=== PATIENT | male | born 1960 | race Caucasian/White ===

== ENCOUNTER 2020-05-08 23:30 | Inpatient (IN) | payer MEDICAID, SELFPAY ==
[~2020-05-08] VITALS: Ht 185.4 cm; Wt 89.8 kg
[2020-05-08 23:30] VITALS: BP_SYST 147
--- NOTE | 2020-05-08 23:38 | NUR ---
Patient to ER bed 7 to gown for evaluation. Side rails up.
--- NOTE | 2020-05-08 23:42 | NUR ---
Patient presents to the ED ambulatory ANO x4 complaining of right lower quadrant abdominal pain nonradiating. Patient reports pain has progressively worsened in the last 3 days. Patient describes it as constant 10 out of 10 pain. Patient states that he has had decreased appetite and constipation. Patient reports taking Ex-Lax and an enema today for the constipation with minimal relief. Patient also reports that he has a umbilical hernia. Patient denies any nausea, vomiting, chest pain, fevers. Patient denies taking any prescribed medication. Patient reports smoking and denies any alcohol or substance abuse.
--- NOTE | 2020-05-08 23:50 | NUR ---
# 18 gauge angiocath placed to LAC. Use of asceptic technique. Opsite placed over site. Blood return noted. Blood and cultures for lab drawn from site. Flushed with 10 cc of normal saline. No evidence of infiltration noted. Patient tolerated well.
[2020-05-09] MEDS ORDERED: NACL 0.9% 1,000 ML IV ONE
[2020-05-09] MEDS ORDERED: MORPHINE 4 MG/ML INJ. SYRINGE IVP ONE
[2020-05-09] MEDS ORDERED: ONDANSETRON HCL 4 MG/2 ML VIAL IVP ONE
[2020-05-09 00:15] LABS: HEMATOCRIT 45.9 % (36-54); MEAN CORPUSCULAR HEMOGLOBIN 28 pg (27-31); MEAN CORPUSCULAR HGB CONC 33 % (32-36); MEAN CORPUSCULAR VOLUME 86 fL (79.0-98.0); PLATELET COUNT (AUTO) 278 K/uL (130-430); RED BLOOD CELL COUNT(AUTO) 5.32 MIL/uL (4.2-6.2); RED CELL DISTRIBUTION WIDTH 14.6 % (9.0-15.0); WHITE BLOOD COUNT (AUTO) 16.4 K/uL (4.8-10.8)
[2020-05-09 00:20] LABS: CALCIUM 9.2 mg/dL (8.4-11.0); CREATININE 1.15 mg/dL (0.55-1.30); POTASSIUM 4.6 mmol/L (3.5-5.1)
--- NOTE | 2020-05-09 00:23 | NUR ---
Medication reconciliation completed with information provided by patient. Any prior medication reconciliation on file was reviewed and corrected. Patient states not currently on any medication
--- NOTE | 2020-05-09 00:24 | NUR ---
patient states he is full code
[2020-05-09 00:25] LABS: ALBUMIN 3.5 g/dL (3.4-4.8); TOTAL BILIRUBIN 1.1 mg/dL (0.0-1.0)
--- NOTE | 2020-05-09 00:29 | NUR ---
PT ERNESTINE TO CT WITH TECH VIA WC
--- NOTE | 2020-05-09 00:29 | NUR ---
patient off unit to CT Scan accompanied by Terri Facility Planner
--- NOTE | 2020-05-09 00:44 | NUR ---
Returned from radiology, back to [facility]. NO SIGNS OF ACUTE DISTRESS.
--- NOTE | 2020-05-09 00:45 | NUR ---
PT REPORTS PAIN DECREASED, BUT STILL EXPERIENCING SHARP PAIN. 6 OUT 10.
--- NOTE | 2020-05-09 00:48 | NUR ---
DR. LEO AT BEDSIDE REEVALUATING PT.
--- NOTE | 2020-05-09 00:50 | NUR ---
PT STATES HE IS UNABLE TO GIVE URINE SAMPLE AT THIS TIME. AWARE.
[2020-05-09] MEDS ORDERED: fentaNYL CITRATE/PF 100 MCG/2 ML AMP IVP ONE (01:00)
[2020-05-09 01:07] LABS: BAND % (MANUAL) 2 % (0-6); LYMPHOCYTES % (MANUAL) 7 % (20-46)
[2020-05-09 01:08] LABS: ATYPICAL LYMPHOCYTES % 5 % (0-0); BASOPHILS % (MANUAL) 0 % (0-2); EOSINOPHILS % (MANUAL) 0 % (0-7); MONOCYTES % (MANUAL) 9 % (0-11)
[2020-05-09] MEDS ORDERED: PIPERACILLIN/TAZO 3.375 GM in NS 50 ML IV ONE (01:30)
[2020-05-09] MEDS ORDERED: PIPERACILLIN/TAZOBACTAM 3.375 GM/VIAL (ZOSYN) IV ONE (01:38)
--- NOTE | 2020-05-09 01:40 | NUR ---
Pt belongings will be sent home with family. Pt to keep shorts and cell phone at bedside.
[2020-05-09] MEDS ORDERED: MORPHINE 2 MG/ML INJ. SYRINGE IVP PRN ×2 (01:45→08:30)
--- NOTE | 2020-05-09 01:49 | NUR ---
Blood cultures drawn, prior to administration of antibiotic.
--- NOTE | 2020-05-09 01:50 | NUR ---
RECEIVED ADMIT ORDERS FROM DR. ZIMMERMAN
--- NOTE | 2020-05-09 01:53 | NUR ---
Patient will be admitted to care of DR. ZIMMERMAN. Admitted to MED SURG unit. Belongings list completed. Complete and up to date summary report printed. SBAR report to be given at bedside with opportunity for questions.
--- NOTE | 2020-05-09 01:55 | NUR ---
Blood for labwork drawn from [facility] writewith. Patient tolerated WELL.
--- NOTE | 2020-05-09 02:02 | NUR ---
PT UNABLE TO GIVE URINE SAMPLE AT THIS TIME. MADE AWARE FOR SECOND TIME.
[2020-05-09] MEDS: D5NS 1,000 ML IV SCH ×3 (02:25→22:46)
--- NOTE | 2020-05-09 02:29 | NUR ---
PT WILL BE GOING TO 110B
--- NOTE | 2020-05-09 02:43 | NUR ---
Patient will be admitted to care of Dr. Syed. Admitted to Med Surg unit. Will go to room 110B. Complete and up to date summary report printed. SBAR report to be given to BRYCE Lamb with opportunity for questions.
--- NOTE | 2020-05-09 03:00 | NUR ---
ADMISSION PHYSICAL ASSESSMENT NOTES; pt. came from ER with c/o abdominal pain with Diagnosis of Ruptured Appendix. oriented to room, settle in bed. IV site on left antecubital. kept NPO. VS checked. instructed on use of call light and bed control. Dr. HOLLEY for consul,possible surgery this am. moves all extremities. on room air, denies any breathing problem. bed in low position.
[2020-05-09 03:27] VITALS: BP_SYST 156
--- NOTE | 2020-05-09 04:20 | NUR ---
NOTES: nursing supervisor phosphoric acid called and inform me that Dr. Newell will come and felix surgery @ 1862. consent to be sign when Dr. Newell gets here. pre op checklist initiated by charge nurse Jeyson. pt. informed.
--- NOTE | 2020-05-09 04:41 | NUR ---
NOTES: pt. medicated for c/o of severe abdominal pain. CXR and EKG stat ordered for pre-op. MRSA of nares sent as well. still needs urine. CHG will be done by SCHOOL TRAFFIC SUPERVISOR.
--- NOTE | 2020-05-09 05:06 | NUR ---
CONSULT REASON FOR CONSULT: RUPTURED APPY CONSULTING PHYSICIAN: DR. KISHAN HOLLEY IS AWARE.
[2020-05-09 05:24] LABS: BASOPHILS % (AUTO) 0.3 % (0.0-2.0); HEMATOCRIT 41.6 % (36-54); HEMOGLOBIN 13.6 g/dL (14.0-18.0); LYMPHOCYTES # (AUTO) 1.2 K/uL (1.0-5.5); LYMPHOCYTES % (AUTO) 8.7 % (20.5-51.5); MEAN CORPUSCULAR HEMOGLOBIN 28 pg (27-31); MEAN CORPUSCULAR HGB CONC 33 % (32-36); MEAN CORPUSCULAR VOLUME 86 fL (79.0-98.0); MONOCYTES # (AUTO) 1.2 K/uL (0.0-1.0); MONOCYTES % (AUTO) 8.6 % (1.7-9.3); NEUTROPHILS # (AUTO) 11.5 K/uL (1.8-7.7); NEUTROPHILS % (AUTO) 82.4 % (40.0-70.0); PLATELET COUNT (AUTO) 262 K/uL (130-430); RED BLOOD CELL COUNT(AUTO) 4.84 MIL/uL (4.2-6.2); RED CELL DISTRIBUTION WIDTH 14.5 % (9.0-15.0)
[2020-05-09 05:28] LABS: INR 1.1 (0.80-1.20); PROTHROMBIN TIME 10.9 SECS (9.5-12.5)
[2020-05-09 05:31] LABS: CALCIUM 8.1 mg/dL (8.4-11.0); CREATININE 1.03 mg/dL (0.55-1.30); POTASSIUM 4.2 mmol/L (3.5-5.1); TOTAL BILIRUBIN 0.9 mg/dL (0.0-1.0)
--- NOTE | 2020-05-09 05:40 | NUR ---
NOTES: DR. Newell here, talked to pt. for the consent. charge nurse Jeyson took over. checklist completed. bladder scan done @ 260 ml in his bladder, tried to urinate, finally able to void and sent urine sample to lab.
--- NOTE | 2020-05-09 05:45 | NUR ---
NOTES: to OR with pre-op nurse via bed.
[2020-05-09 05:49] LABS: BILIRUBIN,URINE NEGATIVE (NEGATIVE); BLOOD, URINE NEGATIVE (NEGATIVE); CLARITY/URINE CLEAR (CLEAR); COLOR,URINE YELLOW (YELLOW); GLUCOSE,URINE NEGATIVE (NEGATIVE); KETONES,URINE NEGATIVE (NEGATIVE); LEUKOCYTE ESTERASE ,URINE NEGATIVE (NEGATIVE); NITRITE, URINE NEGATIVE (NEGATIVE); PROTEIN URINE TRACE (NEGATIVE)
[2020-05-09] MEDS ORDERED: HYDROmorphone 2 MG/ML VIAL IVP PRN (06:45)
[2020-05-09] MEDS ORDERED: ONDANSETRON HCL 4 MG/2 ML VIAL IVP PRN ×2 (06:45→08:30)
[2020-05-09] MEDS ORDERED: LR 1,000 ML IV SCH (06:45)
[2020-05-09] MEDS ORDERED: KETOROLAC TROMETHAMINE 30 MG VIAL IVP PRN (06:45)
[2020-05-09] MEDS ORDERED: HYDROmorphone 1 MG INJ. 1 MG/ML CARTRIDGE IVP PRN ×2 (06:45)
[2020-05-09] MEDS ORDERED: HYDROmorphone 1 MG INJ. 1 MG/ML CARTRIDGE ONE ×2 (06:59→07:35)
--- NOTE | 2020-05-09 08:00 | NUR ---
Post operative notes From PACU after laparoscopic appendectomy under generalized anesthesia , awake oriented x4 feeling sleepy after pain medication given to PACU , denies any pain, with abdominal surgical incision x4 dry/clean , JACQUIE with minimal output pink color , vitals sign monitor , safety/fall precaution initiated, will monitor.
[2020-05-09 08:15] VITALS: BP_SYST 129
[2020-05-09 08:26] VITALS: BP_SYST 156
[2020-05-09] MEDS ORDERED: ACETAMINOPHEN 325 MG TABLET PO PRN (08:30)
[2020-05-09] MEDS ORDERED: MAGNESIUM SULFATE 50 ML IV PRN (08:30)
[2020-05-09] MEDS ORDERED: ZOLPIDEM TARTRATE 5 MG TABLET PO PRN (08:30)
[2020-05-09] MEDS ORDERED: MUPIROCIN 2% TOPICAL OINTMENT 22 GM NS PRN (08:30)
[2020-05-09] MEDS ORDERED: DOCUSATE SODIUM 100 MG CAPSULE PO PRN (08:30)
[2020-05-09] MEDS ORDERED: POTASSIUM CHLORIDE 20 MEQ TAB.PRT.SR PO PRN (08:30)
[2020-05-09] MEDS ORDERED: LORazepam 2 MG/ML VIAL IVP PRN (08:30)
[2020-05-09] MEDS ORDERED: NALOXONE HCL 0.4 MG/ML AMP (NARCAN) IVP PRN ×2 (08:30)
--- NOTE | 2020-05-09 08:30 | NUR ---
PHYSICAL THERAPY ORDER WAS RECEIVED AND THE CHART REVIEWED. RN REQUESTED TO ATTEMPT THE EVALUATION LATER BECAUSE THE PATIENT RECENTLY RETURNED FROM THE OPERATING ROOM/RECOVERY ROOM.
[2020-05-09] MEDS: PIPERACILLIN/TAZO 3.375 GM in NS 50 ML IV SCH ×2 (08:58→16:58)
[2020-05-09 11:24] VITALS: BP_SYST 140
--- NOTE | 2020-05-09 12:04 | NUR ---
Nutrition Update Jason Scale 17 noted. Pt admitted for ruptured appendicitis. Diet: NPO BMI: 26.1 kg/m2 RD to follow per nutrition care standards.
--- NOTE | 2020-05-09 13:36 | NUR ---
Mobility Up in the bed by Physical therapist walked in the hallway using walker no dizziness , mild abdominal incisional pain but tolerable.
--- NOTE | 2020-05-09 13:55 | NUR ---
Patient didn't urinate after surgery , bladder scan 100 ml , taken to bathroom but no urge , Dr. Syed informed with n. o. carried out
--- NOTE | 2020-05-09 14:50 | NUR ---
Patient unable to urinate after surgery but with urge nothing coming out, straight catheter in/out inserted under aseptic technique no resistant with urine output of 600 ml ., patient had lower abdominal pain 08/23 , vitals sign stable , due pain medication given, will monitor. Addendum: 05/09/20 at 1523 by Mavis Colin RN Patient has bowel sound passed gas
[2020-05-09 15:15] VITALS: BP_SYST 144
[2020-05-09] MEDS: MORPHINE 2 MG/ML INJ. SYRINGE IVP PRN ×2 (15:38→18:48)
--- NOTE | 2020-05-09 18:14 | NUR ---
Tolerates clear liquid diet with out abdominal pain/nausea
--- NOTE | 2020-05-09 18:51 | NUR ---
Pagejason Hutchins production checker for Guerrero Cedeño regarding acute pain in the lower abdomen , Dr. Ying informed pain medication ordered, Addendum: 05/09/20 at 1926 by Mavis Colin RN Dr. Hutchins informed regarding progress of patient , pain , with pain medication ordered, will monitor ;endorsed to maintenance supervisor 2nd shift
--- NOTE | 2020-05-09 19:30 | NUR ---
initial notes: pt is awake, alert, oriented x4,resting at this time. no sign of distress, no sob, no pain. room air, vital sign within normal limits. s/p lap. appendectomy- dressing is dry and intact. with cherrie drain drain to serosanguineous.. no skin issue at the back. ivf infusing to left ac gauge 18- intact and patent. explain poc, safety and and call light. pt verbalized understanding. needs attended. call light in reach, side rails up. low bed position, will follow-up.
[2020-05-09 20:12] VITALS: BP_SYST 133
--- NOTE | 2020-05-09 22:42 | NUR ---
pt ambulate and void to the bathroom, back to bed, not distress, needs attended.
[2020-05-09] MEDS: MORPHINE 4 MG/ML INJ. SYRINGE IVP PRN (22:51)
--- NOTE | 2020-05-09 22:58 | NUR ---
post void residual 65cc.
--- NOTE | 2020-05-09 23:38 | NUR ---
pt is still awake, watching tv. not distress. needs attended. call light in reach.
[2020-05-10] VITALS (7 sets, daily range): BP systolic 127–153
[2020-05-10] MEDS: PIPERACILLIN/TAZO 3.375 GM in NS 50 ML IV SCH ×3 (00:41→17:48)
[2020-05-10] MEDS: HYDROcodone/ACETAMIN 5-325 MG TAB (NORCO/ VICODIN) PO PRN ×3 (01:04→18:59)
--- NOTE | 2020-05-10 01:25 | NUR ---
pt is complain of breakthrough pain of 9/10, and pain cause him anxiety, vital sign stable and recorded. explain pain medication and anxiety medication. pt agree and understand. norco and ativan given. husam light in reach. side rails up. low bed position. safety precaution place. will follow-up.
--- NOTE | 2020-05-10 03:25 | NUR ---
IV RE-INSERTION: pt pull out his IV catheter. Restarted on left forearm. Successful after 1 attempts. Resumed current IVF of d5ns and regulated @ 100cc per hour. Will observe for any signs of infiltration.
[2020-05-10 06:46] LABS: BASOPHILS % (AUTO) 0.3 % (0.0-2.0); EOSINOPHILS # (AUTO) 0.1 K/uL (0.0-0.4); EOSINOPHILS % (AUTO) 0.6 % (0.0-4.0); HEMATOCRIT 38.6 % (36-54); HEMOGLOBIN 12.8 g/dL (14.0-18.0); LYMPHOCYTES # (AUTO) 1.1 K/uL (1.0-5.5); MEAN CORPUSCULAR HEMOGLOBIN 29 pg (27-31); MEAN CORPUSCULAR HGB CONC 33 % (32-36); MEAN CORPUSCULAR VOLUME 86 fL (79.0-98.0); MONOCYTES % (AUTO) 8.6 % (1.7-9.3); NEUTROPHILS # (AUTO) 8.9 K/uL (1.8-7.7); NEUTROPHILS % (AUTO) 80.5 % (40.0-70.0); PLATELET COUNT (AUTO) 251 K/uL (130-430); RED BLOOD CELL COUNT(AUTO) 4.47 MIL/uL (4.2-6.2); RED CELL DISTRIBUTION WIDTH 14.4 % (9.0-15.0); WHITE BLOOD COUNT (AUTO) 11.1 K/uL (4.8-10.8)
[2020-05-10 06:53] LABS: CALCIUM 8.1 mg/dL (8.4-11.0); CREATININE 0.95 mg/dL (0.55-1.30); POTASSIUM 3.6 mmol/L (3.5-5.1)
--- NOTE | 2020-05-10 06:53 | NUR ---
CLOSING: pt is resting, no pain, not distress, ivf infusing well. dressing is clean dry and intact.cherrie is draining well. brp using walker. needs attended the whole shift. call light with the pt. will give sbar report to am rn.
[2020-05-10] MEDS: MORPHINE 4 MG/ML INJ. SYRINGE IVP PRN ×4 (07:15→23:55)
[2020-05-10] MEDS: D5NS 1,000 ML IV SCH ×3 (07:45→23:47)
--- NOTE | 2020-05-10 08:18 | NUR ---
Initial note received patient from socket welder helper nurse. patient is resting with eye close, vital stable . no sign of distress. patient report pain is controlled after morphine administered. patient's dressing is clean and intact. JACQUIE drain lower abd, minimum drainage. safety maintained. call light in reach
--- NOTE | 2020-05-10 10:00 | NUR ---
note Patient is asleep. pain is controlled, safety maintained. call light in reach.
--- NOTE | 2020-05-10 14:00 | NUR ---
note Patient report pain 8/10. morphine is given. educated patient on IV, pain med, encourage patient to use call light before getting up to the bathroom
--- NOTE | 2020-05-10 16:00 | NUR ---
Notes- Ambulate in the hallway, Tolerated well .Patient stated that he is passing gas.
--- NOTE | 2020-05-10 19:03 | NUR ---
closing note patient been resting most of the shift. was able to to ambulate with a walker around the unit, and use to bathroom. his pain is managed with norco and morphine. last dose of norco was given at 1900.c instructed the patient to calll when he needs to get up. safety maintained.
--- NOTE | 2020-05-10 19:12 | NUR ---
Dietitian Recommendations * Recommend continuing clear liquid diet (ONS Ensure Clear TID comes standard w/ current diet order; provides 720 kcal/day, 24 gm protein/day) * Consider advance diet if/when medically appropriate (soft low fiber/bland) diet w/ Ensure Enlive BID for optimal surgical healing) LP, RD Please refer to Nutrition Assessment for details. Addendum: 05/10/20 at [address] Amended: Links added.
--- NOTE | 2020-05-10 19:30 | NUR ---
Initial note Received patient from day shift nurse. Patient is awake and alert in bed, vitals stable . no sign of distress. Pt report pain 10/10. Will medicate. patient's dressing is clean and intact. JACQUIE drain lower abd, minimum drainage. safety maintained. call light in reach
--- NOTE | 2020-05-10 23:30 | NUR ---
RN Rounds Pt medicated for breakthrough pain. VSS. Breathing nonlabored to room air.
[2020-05-11] VITALS: BP_SYST 136
[2020-05-11] MEDS: PIPERACILLIN/TAZO 3.375 GM in NS 50 ML IV SCH ×2 (01:03→08:56)
[2020-05-11] MEDS: HYDROcodone/ACETAMIN 5-325 MG TAB (NORCO/ VICODIN) PO PRN ×2 (01:04→11:54)
[2020-05-11] MEDS: MORPHINE 4 MG/ML INJ. SYRINGE IVP PRN ×2 (05:14→08:56)
--- NOTE | 2020-05-11 05:35 | NUR ---
Pain med given Pt slept for a while however now is at 10/10 pain again. Pt medicated.
--- NOTE | 2020-05-11 06:53 | NUR ---
Closing Note: Patient is awake and alert in bed, breathing nonlabored to room air. IV on LFA #20 infusing ordered fluid and patent. No infiltration noted. JACQUIE drain lower abd, 100 cc drainage through shift. Safety precautions maintained. Call light within reach. Will continue to monitor until care endorsed to dayshift RN.
[2020-05-11 07:28] LABS: BASOPHILS % (AUTO) 0.1 % (0.0-2.0); EOSINOPHILS # (AUTO) 0.1 K/uL (0.0-0.4); EOSINOPHILS % (AUTO) 0.8 % (0.0-4.0); HEMATOCRIT 43.2 % (36-54); HEMOGLOBIN 14.2 g/dL (14.0-18.0); LYMPHOCYTES # (AUTO) 0.7 K/uL (1.0-5.5); LYMPHOCYTES % (AUTO) 6.7 % (20.5-51.5); MEAN CORPUSCULAR HEMOGLOBIN 29 pg (27-31); MEAN CORPUSCULAR HGB CONC 33 % (32-36); MEAN CORPUSCULAR VOLUME 87 fL (79.0-98.0); MONOCYTES # (AUTO) 0.9 K/uL (0.0-1.0); MONOCYTES % (AUTO) 8.4 % (1.7-9.3); NEUTROPHILS # (AUTO) 9.3 K/uL (1.8-7.7); PLATELET COUNT (AUTO) 326 K/uL (130-430); RED BLOOD CELL COUNT(AUTO) 4.97 MIL/uL (4.2-6.2); RED CELL DISTRIBUTION WIDTH 14.8 % (9.0-15.0)
[2020-05-11 08:00] VITALS: BP_SYST 154
--- NOTE | 2020-05-11 08:15 | NUR ---
Opening Notes Patient is awake, alert and oriented x4. No resp distress noted. Breathing is even and unlabored. Pt is c/o 8/10 general body pain, requesting pain meds. Pt is noted ambulating throughout the floor, steady gait. IV site on left RA, 20 gauge intact at this time. Dressing is clean and dry. D5NS @ 100 cc/hr, infusing well at this time. Pt remains on a clear liquid diet. Pt denies any NVD or cough at this time. All needs met. Safety and fall precautions in place. Bed in lowest position, locked. Will continue to monitor.
[2020-05-11 08:21] LABS: CALCIUM 8.6 mg/dL (8.4-11.0); CREATININE 0.8 mg/dL (0.55-1.30); POTASSIUM 3.5 mmol/L (3.5-5.1)
[2020-05-11 10:42] VITALS: BP_SYST 150
[2020-05-11 11:30] VITALS: BP_SYST 150
--- NOTE | 2020-05-11 12:20 | NUR ---
D/C Patient Patient given medication reconciliation form and D/C instructions. Exit Care provided. Patient verbalized understanding. MD discussed with patient the results and treatment provided. Ambulatory with steady gait for discharge to home. Patient in stable condition, ID band removed. IV catheter removed, intact and dressing applied, no active bleeding. Rx of given. Patient educated on pain management. All belongings sent with patient.
--- NOTE | 2020-05-12 09:51 | NUR ---
PHYSICAL THERAPY CO-SIGN The Physical Therapy Progress Notes documented by Financial Risk Manager have been reviewed. Reviewed/Co-Signed by: Jose Dobson Documentation Done by: ROSELINE DAMIAN PTA Addendum: 05/12/20 at 0952 by Jose Dobson PT Amended: Links added.
== END 2020-05-11 12:25 | disposition home or self-care (01) | DRG 710 ==
LOC: SED 23:30 → SMU 05-09 01:45
PROVIDERS: ADMIT General Practice; ATTEND General Practice
PROC: 0DTJ4ZZ Resection of Appendix, Percutaneous Endoscopic Approach (ICD-10-PCS; principal; 2020-05-09 05:37)
DX: A41.9 Sepsis, unspecified organism (principal); K35.32 Acute appendicitis with perforation, localized peritonitis, and gangrene, without abscess; K40.20 Bilateral inguinal hernia, without obstruction or gangrene, not specified as recurrent; E83.41 Hypermagnesemia; R74.01 Elevation of levels of liver transaminase levels; E44.0 Moderate protein-calorie malnutrition; Z20.822 Contact with and (suspected) exposure to COVID-19; F17.210 Nicotine dependence, cigarettes, uncomplicated; Z68.26 Body mass index [BMI] 26.0-26.9, adult
CPT/HCPCS: 36415; 71045; 76376; 80048; 80053; 81003; 83036; 83605; 83690-TC; 83735-TC; 85007; 85025; 85027; 85610-TC; 85730-TC; 87040-TC; 87081; 88304; 93005; 94010; 96361; 96365; 96374; 96375; 97112-GP; 97116-GP; C1727; J1170; J2060; J2270; J2405; J2543; J3010; J7042

== ENCOUNTER 2020-05-12 06:28 | Inpatient (IN) | payer MEDICAID, SELFPAY ==
[~2020-05-12] VITALS: Ht 185.4 cm; Wt 88.5 kg
[~2020-05-12 06:28] MED LIST: BUPIVACAINE /EPINEPHRINE/PF 0.5% 30 ML VIAL INJ ONE; CEFAZOLIN 2 GM IVPB PREMIX 50 ML IV ONE; GLYCOPYRROLATE 0.2 MG/ML VIAL IJ ONE; KETAMINE 30 MG/3 ML SYRINGE IV ONE; KETAMINE HCL 500 MG/10 ML VIAL IVP ONE; KETOROLAC TROMETHAMINE 30 MG VIAL IVP ONE; LR 1,000 ML IV.SOLN IV ONE; METOCLOPRAMIDE HCL 10 MG/2 ML VIAL IVP ONE; NEOSTIGMINE METHYLSULFATE 1 MG/ML, 10 ML VIAL IVP ONE; NS 1000 ML IV.SOLN IV ONE; NS IRRIG SOLN 1000 ML IR ONE; ONDANSETRON HCL 4 MG/2 ML VIAL IVP ONE; ROCURONIUM BROMIDE 10 MG/ML (ZEMURON) IV ONE; SEVOFLURANE 15 MIN GAS INH ONE; fentaNYL CITRATE/PF 100 MCG/2 ML AMP IVP ONE
[2020-05-12 06:34] VITALS: BP_SYST 150
[2020-05-12] MEDS ORDERED: PIPERACILLIN/TAZOBACTAM 3.375 GM/VIAL (ZOSYN) IV ONE (06:59)
[2020-05-12] MEDS ORDERED: NACL 0.9% 2,000 ML IV ONE (07:00)
[2020-05-12] MEDS ORDERED: PIPERACILLIN/TAZO 3.375 GM in NS 50 ML IV ONE (07:00)
[2020-05-12] MEDS ORDERED: NACL 0.9% 1,000 ML IV ONE (07:00)
[2020-05-12] MEDS ORDERED: ONDANSETRON HCL 4 MG/2 ML VIAL IVP ONE (07:00)
[2020-05-12] MEDS ORDERED: MORPHINE 4 MG INJ. 4 MG/ML VIAL IVP ONE ×2 (07:00→09:45)
[2020-05-12 07:13] LABS: BASOPHILS % (AUTO) 0.5 % (0.0-2.0); EOSINOPHILS # (AUTO) 0.2 K/uL (0.0-0.4); EOSINOPHILS % (AUTO) 2.1 % (0.0-4.0); HEMATOCRIT 43.7 % (36-54); HEMOGLOBIN 14.8 g/dL (14.0-18.0); LYMPHOCYTES % (AUTO) 13.5 % (20.5-51.5); MEAN CORPUSCULAR HEMOGLOBIN 29 pg (27-31); MEAN CORPUSCULAR HGB CONC 34 % (32-36); MEAN CORPUSCULAR VOLUME 85 fL (79.0-98.0); MONOCYTES # (AUTO) 1.3 K/uL (0.0-1.0); MONOCYTES % (AUTO) 16.5 % (1.7-9.3); NEUTROPHILS # (AUTO) 5.2 K/uL (1.8-7.7); NEUTROPHILS % (AUTO) 67.4 % (40.0-70.0); PLATELET COUNT (AUTO) 427 K/uL (130-430); RED BLOOD CELL COUNT(AUTO) 5.16 MIL/uL (4.2-6.2); RED CELL DISTRIBUTION WIDTH 14.4 % (9.0-15.0); WHITE BLOOD COUNT (AUTO) 7.7 K/uL (4.8-10.8)
[2020-05-12 07:29] LABS: CALCIUM 8.7 mg/dL (8.4-11.0); CREATININE 0.88 mg/dL (0.55-1.30); POTASSIUM 3.8 mmol/L (3.5-5.1)
[2020-05-12 07:35] LABS: ALBUMIN 2.8 g/dL (3.4-4.8); TOTAL BILIRUBIN 1.2 mg/dL (0.0-1.0)
[2020-05-12] MEDS ORDERED: LR 1,000 ML IV ONE (10:00)
[2020-05-12] MEDS ORDERED: ONDANSETRON HCL 4 MG/2 ML VIAL IVP PRN (10:45)
[2020-05-12 12:00] VITALS: BP_SYST 158
[2020-05-12] MEDS ORDERED: ENOXAPARIN SODIUM 30 MG/0.3 ML SYRINGE SUBCUT ONE (12:00)
[2020-05-12] MEDS ORDERED: NICOTINE 14 MG/24 HR PATCH.TD24 TD ONE (12:00)
[2020-05-12] MEDS: D5NS 1,000 ML IV SCH (13:00)
[2020-05-12] MEDS: PIPERACILLIN/TAZO 3.375/DEX-IS 50 ML IV SCH ×2 (13:41→21:10)
[2020-05-12 16:56] VITALS: BP_SYST 135
[2020-05-12 20:01] VITALS: BP_SYST 147
[2020-05-12] MEDS: HYDROmorphone 1 INJ. 1 MG/ML CARTRIDGE IVP PRN (21:15)
[2020-05-13 00:01] VITALS: BP_SYST 142
[2020-05-13] MEDS: PIPERACILLIN/TAZO 3.375/DEX-IS 50 ML IV SCH ×4 (01:25→20:18)
[2020-05-13] MEDS: D5NS 1,000 ML IV SCH ×3 (01:25→20:19)
[2020-05-13] MEDS: HYDROmorphone 1 INJ. 1 MG/ML CARTRIDGE IVP PRN ×5 (01:28→22:13)
[2020-05-13 06:31] LABS: BASOPHILS % (AUTO) 0.4 % (0.0-2.0); EOSINOPHILS # (AUTO) 0.2 K/uL (0.0-0.4); EOSINOPHILS % (AUTO) 4.7 % (0.0-4.0); HEMATOCRIT 38.2 % (36-54); HEMOGLOBIN 12.7 g/dL (14.0-18.0); LYMPHOCYTES # (AUTO) 0.8 K/uL (1.0-5.5); LYMPHOCYTES % (AUTO) 17.5 % (20.5-51.5); MEAN CORPUSCULAR HEMOGLOBIN 29 pg (27-31); MEAN CORPUSCULAR HGB CONC 33 % (32-36); MEAN CORPUSCULAR VOLUME 86 fL (79.0-98.0); MONOCYTES # (AUTO) 1.1 K/uL (0.0-1.0); MONOCYTES % (AUTO) 21.7 % (1.7-9.3); NEUTROPHILS # (AUTO) 2.7 K/uL (1.8-7.7); NEUTROPHILS % (AUTO) 55.7 % (40.0-70.0); PLATELET COUNT (AUTO) 426 K/uL (130-430); RED BLOOD CELL COUNT(AUTO) 4.46 MIL/uL (4.2-6.2); RED CELL DISTRIBUTION WIDTH 14.7 % (9.0-15.0); WHITE BLOOD COUNT (AUTO) 4.8 K/uL (4.8-10.8)
[2020-05-13 06:47] LABS: CALCIUM 8.2 mg/dL (8.4-11.0); CREATININE 1.05 mg/dL (0.55-1.30); PHOSPHORUS 3.5 mg/dL (2.7-4.5); POTASSIUM 3.4 mmol/L (3.5-5.1)
[2020-05-13 08:00] VITALS: BP_SYST 140
[2020-05-13] MEDS ORDERED: GASTROGRAFIN 120 ML ONE (08:18)
[2020-05-13] MEDS: NICOTINE 14 MG/24 HR PATCH.TD24 TD SCH (08:32)
[2020-05-13] MEDS: ENOXAPARIN SODIUM 30 MG/0.3 ML SYRINGE SUBCUT SCH (08:35)
[2020-05-13 12:00] VITALS: BP_SYST 163
[2020-05-13 17:00] VITALS: BP_SYST 141
[2020-05-13 20:00] VITALS: BP_SYST 157
[2020-05-14] MEDS: PIPERACILLIN/TAZO 3.375/DEX-IS 50 ML IV SCH ×4 (01:27→19:21)
[2020-05-14] MEDS: HYDROmorphone 1 INJ. 1 MG/ML CARTRIDGE IVP PRN ×5 (01:40→23:31)
[2020-05-14] MEDS ORDERED: KCL 20 mEq in D5/0.45NS 1000mL 1,000 ML IV ONE (02:15)
[2020-05-14] MEDS: KCL 20 mEq in D5NS 1000 mL 1,000 ML IV SCH ×2 (02:27→12:37)
[2020-05-14 07:44] LABS: ALBUMIN 2.6 g/dL (3.4-4.8); CALCIUM 8.1 mg/dL (8.4-11.0); CREATININE 1.11 mg/dL (0.55-1.30); PHOSPHORUS 4.2 mg/dL (2.7-4.5); POTASSIUM 3.3 mmol/L (3.5-5.1); TOTAL BILIRUBIN 0.6 mg/dL (0.0-1.0)
[2020-05-14 08:00] VITALS: BP_SYST 144
[2020-05-14] MEDS: NICOTINE 14 MG/24 HR PATCH.TD24 TD SCH (08:30)
[2020-05-14] MEDS: ENOXAPARIN SODIUM 30 MG/0.3 ML SYRINGE SUBCUT SCH (08:32)
[2020-05-14 12:50] VITALS: BP_SYST 130
[2020-05-14] MEDS ORDERED: *PPN PER PHARMACY XX PRN (14:30)
[2020-05-14] MEDS: D5NS 1,000 ML IV SCH (15:33)
[2020-05-14 16:00] VITALS: BP_SYST 150
[2020-05-14 20:00] VITALS: BP_SYST 156
[2020-05-15] MEDS: PIPERACILLIN/TAZO 3.375/DEX-IS 50 ML IV SCH ×5 (00:27→23:57)
[2020-05-15 00:46] VITALS: BP_SYST 167
[2020-05-15] MEDS: D5NS 1,000 ML IV SCH ×2 (03:35→18:33)
[2020-05-15 06:42] LABS: BASOPHILS % (AUTO) 0.3 % (0.0-2.0); EOSINOPHILS # (AUTO) 0.1 K/uL (0.0-0.4); EOSINOPHILS % (AUTO) 1.4 % (0.0-4.0); HEMATOCRIT 38.5 % (36-54); HEMOGLOBIN 12.7 g/dL (14.0-18.0); LYMPHOCYTES # (AUTO) 1.3 K/uL (1.0-5.5); LYMPHOCYTES % (AUTO) 16.9 % (20.5-51.5); MEAN CORPUSCULAR HEMOGLOBIN 29 pg (27-31); MEAN CORPUSCULAR HGB CONC 33 % (32-36); MEAN CORPUSCULAR VOLUME 86 fL (79.0-98.0); MONOCYTES % (AUTO) 12.3 % (1.7-9.3); NEUTROPHILS # (AUTO) 5.4 K/uL (1.8-7.7); NEUTROPHILS % (AUTO) 69.1 % (40.0-70.0); PLATELET COUNT (AUTO) 441 K/uL (130-430); RED BLOOD CELL COUNT(AUTO) 4.45 MIL/uL (4.2-6.2); RED CELL DISTRIBUTION WIDTH 14.6 % (9.0-15.0); WHITE BLOOD COUNT (AUTO) 7.8 K/uL (4.8-10.8)
[2020-05-15 07:15] LABS: ALBUMIN 2.6 g/dL (3.4-4.8); CALCIUM 7.8 mg/dL (8.4-11.0); CREATININE 0.99 mg/dL (0.55-1.30); PHOSPHORUS 2.6 mg/dL (2.7-4.5); POTASSIUM 3.3 mmol/L (3.5-5.1); TOTAL BILIRUBIN 0.5 mg/dL (0.0-1.0)
[2020-05-15 09:10] VITALS: BP_SYST 154
[2020-05-15] MEDS: NICOTINE 14 MG/24 HR PATCH.TD24 TD SCH (09:10)
[2020-05-15] MEDS: ENOXAPARIN SODIUM 30 MG/0.3 ML SYRINGE SUBCUT SCH (09:11)
[2020-05-15] MEDS: HYDROmorphone 1 INJ. 1 MG/ML CARTRIDGE IVP PRN ×2 (09:13→13:13)
[2020-05-15] MEDS ORDERED: POTASSIUM CHLORIDE 20 MEQ in NS 250 ML IV ONE (11:15)
[2020-05-15 12:17] VITALS: BP_SYST 164
[2020-05-15] MEDS ORDERED: ONDANSETRON HCL 4 MG/2 ML VIAL IVP PRN (12:30)
[2020-05-15] MEDS ORDERED: fentaNYL CITRATE/PF 100 MCG/2 ML AMP IVP PRN ×2 (12:30)
[2020-05-15 13:39] VITALS: BP_SYST 154
[2020-05-15 13:52] LABS: CALCIUM 7.4 mg/dL (8.4-11.0); CREATININE 1.05 mg/dL (0.55-1.30); POTASSIUM 3.6 mmol/L (3.5-5.1)
[2020-05-15] MEDS ORDERED: GLYCOPYRROLATE 0.2 MG/ML VIAL IJ ONE (14:30)
[2020-05-15] MEDS ORDERED: NS IRRIG SOLN 1000 ML IR ONE (14:30)
[2020-05-15] MEDS ORDERED: SUCCINYLCHOLINE CHLORIDE 20 MG/ML(QUELICIN) IVP ONE (14:30)
[2020-05-15] MEDS ORDERED: ROCURONIUM BROMIDE 10 MG/ML (ZEMURON) IV ONE (14:30)
[2020-05-15] MEDS ORDERED: DEXAMETHASONE SOD PHOSPHATE 4 MG/ML VIAL IVP ONE (14:30)
[2020-05-15] MEDS ORDERED: METOCLOPRAMIDE HCL 10 MG/2 ML VIAL IVP ONE (14:30)
[2020-05-15] MEDS ORDERED: fentaNYL CITRATE 250 MCG/5 ML AMP IV ONE (14:30)
[2020-05-15] MEDS ORDERED: ONDANSETRON HCL 4 MG/2 ML VIAL IVP ONE (14:30)
[2020-05-15] MEDS ORDERED: NEOSTIGMINE METHYLSULFATE 1 MG/ML, 10 ML VIAL IVP ONE (14:30)
[2020-05-15] MEDS ORDERED: PROPOFOL 200MG/ 20ML VIAL (DIPRIVAN) IV ONE (14:30)
[2020-05-15] MEDS ORDERED: LR 1,000 ML IV.SOLN IV ONE (14:30)
[2020-05-15] MEDS ORDERED: BUPIVACAINE /EPINEPHRINE/PF 0.25% 30 ML VIAL INJ ONE (14:30)
[2020-05-15] MEDS ORDERED: MIDAZOLAM HCL 5 MG/5 ML VIAL IVP ONE (14:30)
[2020-05-15] MEDS ORDERED: HYDROmorphone 2 MG/ML VIAL IVP ONE (14:30)
[2020-05-15] MEDS ORDERED: SEVOFLURANE 15 MIN GAS INH ONE (14:30)
[2020-05-15 14:58] LABS: INR 1.6 (0.80-1.20); PROTHROMBIN TIME 16.2 SECS (9.5-12.5)
[2020-05-15] MEDS ORDERED: MEPERIDINE HCL/PF 25 MG/ML DISP.SYRIN IVP PRN (16:00)
[2020-05-15] MEDS ORDERED: LABETALOL 100 MG/ 20ML VIAL IVP PRN (16:00)
[2020-05-15] MEDS ORDERED: HYDROmorphone 2 MG/ML VIAL IVP PRN ×2 (16:00)
[2020-05-15] MEDS ORDERED: HYDROmorphone 1 INJ. 1 MG/ML CARTRIDGE IVP PRN (16:00)
[2020-05-15] MEDS ORDERED: LR 1,000 ML IV SCH (16:00)
[2020-05-15] MEDS ORDERED: HYDROmorphone 1 INJ. 1 MG/ML CARTRIDGE ONE (16:14)
[2020-05-15] MEDS ORDERED: LABETALOL 100 MG/ 20ML VIAL ONE (16:15)
[2020-05-15 17:20] VITALS: BP_SYST 144
[2020-05-15 18:30] LABS: BLOOD, URINE 3+ (NEGATIVE); CLARITY/URINE CLEAR (CLEAR); COLOR,URINE YELLOW (YELLOW); GLUCOSE,URINE NEGATIVE (NEGATIVE); KETONES,URINE NEGATIVE (NEGATIVE); LEUKOCYTE ESTERASE ,URINE NEGATIVE (NEGATIVE); NITRITE, URINE NEGATIVE (NEGATIVE); PROTEIN URINE 1+ (NEGATIVE)
[2020-05-15 18:54] LABS: BILIRUBIN,URINE 2+ (NEGATIVE)
[2020-05-15 20:00] VITALS: BP_SYST 158
[2020-05-15 20:11] LABS: RBC,URINE 20-50 /HPF (0-3); WBC,URINE NONE SEEN /HPF (0-3)
[2020-05-15 20:12] LABS: BACTERIA,URINE None Seen /HPF (None Seen); TRICHOMONAS,URINE None Seen /HPF (None Seen); YEAST,URINE None Seen /HPF (None Seen)
[2020-05-15] MEDS ORDERED: POTASSIUM ACETATE IV SCH ×8 (21:00)
[2020-05-15] MEDS ORDERED: POTASSIUM CHLORIDE IV SCH ×8 (21:00)
[2020-05-15] MEDS ORDERED: [UNRECOGNIZED DRUG - OTHER] IV SCH ×8 (21:00)
[2020-05-15] MEDS ORDERED: TPN PERIPHERAL IV SCH ×8 (21:00)
[2020-05-16] MEDS: HYDROmorphone 1 INJ. 1 MG/ML CARTRIDGE IVP PRN ×4 (00:04→21:18)
[2020-05-16 01:14] VITALS: BP_SYST 151
[2020-05-16] MEDS: HYDROcodone/ACETAMIN 5-325 MG TAB (NORCO/ VICODIN) PO PRN (04:16)
[2020-05-16] MEDS: PIPERACILLIN/TAZO 3.375/DEX-IS 50 ML IV SCH ×3 (06:01→21:04)
[2020-05-16 06:43] LABS: BASOPHILS % (AUTO) 0.2 % (0.0-2.0); EOSINOPHILS % (AUTO) 0.1 % (0.0-4.0); HEMATOCRIT 37.4 % (36-54); HEMOGLOBIN 12.1 g/dL (14.0-18.0); LYMPHOCYTES # (AUTO) 1.7 K/uL (1.0-5.5); LYMPHOCYTES % (AUTO) 15.6 % (20.5-51.5); MEAN CORPUSCULAR HEMOGLOBIN 29 pg (27-31); MEAN CORPUSCULAR HGB CONC 33 % (32-36); MEAN CORPUSCULAR VOLUME 88 fL (79.0-98.0); MONOCYTES # (AUTO) 0.7 K/uL (0.0-1.0); NEUTROPHILS # (AUTO) 8.2 K/uL (1.8-7.7); NEUTROPHILS % (AUTO) 77.1 % (40.0-70.0); PLATELET COUNT (AUTO) 397 K/uL (130-430); RED BLOOD CELL COUNT(AUTO) 4.26 MIL/uL (4.2-6.2); WHITE BLOOD COUNT (AUTO) 10.7 K/uL (4.8-10.8)
[2020-05-16 07:29] LABS: CALCIUM 7.7 mg/dL (8.4-11.0); CREATININE 1.04 mg/dL (0.55-1.30); PHOSPHORUS 3.8 mg/dL (2.7-4.5); POTASSIUM 4.2 mmol/L (3.5-5.1)
[2020-05-16 07:45] VITALS: BP_SYST 151
[2020-05-16] MEDS: NICOTINE 14 MG/24 HR PATCH.TD24 TD SCH (08:55)
[2020-05-16] MEDS: ENOXAPARIN SODIUM 30 MG/0.3 ML SYRINGE SUBCUT SCH (09:00)
[2020-05-16 12:15] VITALS: BP_SYST 142
[2020-05-16] MEDS: D5NS 1,000 ML IV SCH ×2 (12:17→21:25)
[2020-05-16] MEDS ORDERED: MORPHINE 2 MG/ML INJ. SYRINGE IVP PRN (14:45)
[2020-05-16] MEDS ORDERED: SIMETHICONE 80 MG TAB.CHEW PO PRN (14:45)
[2020-05-16] MEDS ORDERED: KETOROLAC TROMETHAMINE 15 MG VIAL IM ONE (15:30)
[2020-05-16 16:10] VITALS: BP_SYST 160
[2020-05-16 20:00] VITALS: BP_SYST 159
[2020-05-16] MEDS ORDERED: TPN PERIPHERAL IV SCH ×9 (21:00)
[2020-05-16] MEDS ORDERED: [UNRECOGNIZED DRUG - OTHER] IV SCH ×9 (21:00)
[2020-05-16] MEDS ORDERED: POTASSIUM CHLORIDE IV SCH ×9 (21:00)
[2020-05-16] MEDS ORDERED: POTASSIUM ACETATE IV SCH ×9 (21:00)
[2020-05-16] MEDS: KETOROLAC TROMETHAMINE 15 MG VIAL IM SCH (23:19)
[2020-05-17] VITALS: BP_SYST 149
[2020-05-17] MEDS: PIPERACILLIN/TAZO 3.375/DEX-IS 50 ML IV SCH ×4 (01:12→18:50)
[2020-05-17] MEDS: KETOROLAC TROMETHAMINE 15 MG VIAL IM SCH ×3 (06:03→17:59)
[2020-05-17 06:28] LABS: BASOPHILS % (AUTO) 0.3 % (0.0-2.0); EOSINOPHILS # (AUTO) 0.1 K/uL (0.0-0.4); EOSINOPHILS % (AUTO) 1.7 % (0.0-4.0); HEMATOCRIT 34.2 % (36-54); HEMOGLOBIN 10.9 g/dL (14.0-18.0); LYMPHOCYTES # (AUTO) 1.1 K/uL (1.0-5.5); LYMPHOCYTES % (AUTO) 16.5 % (20.5-51.5); MEAN CORPUSCULAR HEMOGLOBIN 28 pg (27-31); MEAN CORPUSCULAR HGB CONC 32 % (32-36); MEAN CORPUSCULAR VOLUME 89 fL (79.0-98.0); MONOCYTES # (AUTO) 0.6 K/uL (0.0-1.0); MONOCYTES % (AUTO) 8.4 % (1.7-9.3); NEUTROPHILS % (AUTO) 73.1 % (40.0-70.0); PLATELET COUNT (AUTO) 336 K/uL (130-430); RED BLOOD CELL COUNT(AUTO) 3.85 MIL/uL (4.2-6.2); RED CELL DISTRIBUTION WIDTH 15.3 % (9.0-15.0); WHITE BLOOD COUNT (AUTO) 6.9 K/uL (4.8-10.8)
[2020-05-17 06:45] LABS: ALBUMIN 1.9 g/dL (3.4-4.8); CREATININE 1.1 mg/dL (0.55-1.30); PHOSPHORUS 2.3 mg/dL (2.7-4.5); TOTAL BILIRUBIN 0.6 mg/dL (0.0-1.0)
[2020-05-17 07:48] LABS: POTASSIUM 2.8 mmol/L (3.5-5.1)
[2020-05-17 08:00] VITALS: BP_SYST 130
[2020-05-17] MEDS ORDERED: D5W 1,000 ML IV PRN (08:45)
[2020-05-17] MEDS ORDERED: DEXTROSE 50%-WATER 50 ML DISP.SYRIN IVP PRN (08:45)
[2020-05-17] MEDS ORDERED: GLUCOSE (DEXTROSE) ORAL GEL -Adults PO PRN (08:45)
[2020-05-17] MEDS ORDERED: INSULIN REGULAR, HUMAN 100 UNITS/ML, 10 ML VIAL (humuLIN R) SUBCUT PRN (08:45)
[2020-05-17] MEDS: NICOTINE 14 MG/24 HR PATCH.TD24 TD SCH (09:35)
[2020-05-17] MEDS: ENOXAPARIN SODIUM 30 MG/0.3 ML SYRINGE SUBCUT SCH (09:35)
[2020-05-17] MEDS: NACL 0.9% 1,000 ML IV SCH ×2 (10:31→21:46)
[2020-05-17 12:00] VITALS: BP_SYST 163
[2020-05-17 15:09] VITALS: BP_SYST 132
[2020-05-17] MEDS: HYDROcodone/ACETAMIN 5-325 MG TAB (NORCO/ VICODIN) PO PRN (18:45)
[2020-05-17 20:00] VITALS: BP_SYST 162
[2020-05-17] MEDS ORDERED: [UNRECOGNIZED DRUG - OTHER] IV SCH ×9 (21:00)
[2020-05-17] MEDS ORDERED: K PHOS IV SCH ×9 (21:00)
[2020-05-17] MEDS ORDERED: POTASSIUM ACETATE IV SCH ×9 (21:00)
[2020-05-17] MEDS ORDERED: TPN PERIPHERAL IV SCH ×9 (21:00)
[2020-05-18] MEDS: KETOROLAC TROMETHAMINE 15 MG VIAL IM SCH ×4 (00:38→18:27)
[2020-05-18] MEDS: PIPERACILLIN/TAZO 3.375/DEX-IS 50 ML IV SCH ×4 (00:39→18:32)
[2020-05-18] MEDS: HYDROmorphone 1 INJ. 1 MG/ML CARTRIDGE IVP PRN ×5 (03:27→22:15)
[2020-05-18 07:58] LABS: ALBUMIN 2.3 g/dL (3.4-4.8); CALCIUM 7.8 mg/dL (8.4-11.0); CREATININE 0.85 mg/dL (0.55-1.30); POTASSIUM 3.6 mmol/L (3.5-5.1); TOTAL BILIRUBIN 0.9 mg/dL (0.0-1.0)
[2020-05-18 08:00] VITALS: BP_SYST 156
[2020-05-18] MEDS: NICOTINE 14 MG/24 HR PATCH.TD24 TD SCH (08:28)
[2020-05-18] MEDS: ENOXAPARIN SODIUM 30 MG/0.3 ML SYRINGE SUBCUT SCH (08:34)
[2020-05-18] MEDS: NACL 0.9% 1,000 ML IV SCH ×2 (11:56→18:34)
[2020-05-18 12:00] VITALS: BP_SYST 155
[2020-05-18 16:00] VITALS: BP_SYST 128
[2020-05-18 20:00] VITALS: BP_SYST 154
[2020-05-18] MEDS ORDERED: ZOLPIDEM TARTRATE 5 MG TABLET PO PRN (21:00)
[2020-05-18] MEDS ORDERED: POTASSIUM ACETATE IV SCH ×10 (21:00)
[2020-05-18] MEDS ORDERED: SODIUM ACETATE IV SCH ×10 (21:00)
[2020-05-18] MEDS ORDERED: [UNRECOGNIZED DRUG - OTHER] IV SCH ×10 (21:00)
[2020-05-18] MEDS ORDERED: TPN PERIPHERAL IV SCH ×10 (21:00)
[2020-05-18] MEDS: KETOROLAC TROMETHAMINE 15 MG VIAL IVP SCH (23:20)
[2020-05-19 00:23] VITALS: BP_SYST 155
[2020-05-19] MEDS: HYDROmorphone 1 INJ. 1 MG/ML CARTRIDGE IVP PRN ×5 (03:22→21:02)
[2020-05-19] MEDS: KETOROLAC TROMETHAMINE 15 MG VIAL IVP SCH ×4 (05:35→23:25)
[2020-05-19 06:46] LABS: BASOPHILS % (AUTO) 0.3 % (0.0-2.0); EOSINOPHILS % (AUTO) 1.1 % (0.0-4.0); HEMATOCRIT 36.2 % (36-54); LYMPHOCYTES # (AUTO) 0.8 K/uL (1.0-5.5); LYMPHOCYTES % (AUTO) 24.1 % (20.5-51.5); MEAN CORPUSCULAR HEMOGLOBIN 28 pg (27-31); MEAN CORPUSCULAR HGB CONC 33 % (32-36); MEAN CORPUSCULAR VOLUME 85 fL (79.0-98.0); MONOCYTES # (AUTO) 0.6 K/uL (0.0-1.0); MONOCYTES % (AUTO) 16.3 % (1.7-9.3); NEUTROPHILS % (AUTO) 58.2 % (40.0-70.0); PLATELET COUNT (AUTO) 294 K/uL (130-430); RED BLOOD CELL COUNT(AUTO) 4.24 MIL/uL (4.2-6.2); RED CELL DISTRIBUTION WIDTH 14.6 % (9.0-15.0); WHITE BLOOD COUNT (AUTO) 3.4 K/uL (4.8-10.8)
[2020-05-19 07:30] LABS: ALBUMIN 2.4 g/dL (3.4-4.8); CREATININE 0.73 mg/dL (0.55-1.30); PHOSPHORUS 2.8 mg/dL (2.7-4.5); POTASSIUM 3.6 mmol/L (3.5-5.1); TOTAL BILIRUBIN 0.8 mg/dL (0.0-1.0)
[2020-05-19 08:16] VITALS: BP_SYST 155
[2020-05-19] MEDS: NICOTINE 14 MG/24 HR PATCH.TD24 TD SCH (08:18)
[2020-05-19] MEDS: ENOXAPARIN SODIUM 30 MG/0.3 ML SYRINGE SUBCUT SCH (08:23)
[2020-05-19 11:25] VITALS: BP_SYST 146
[2020-05-19 12:16] VITALS: BP_SYST 143
[2020-05-19] MEDS ORDERED: PANTOPRAZOLE SODIUM 40 MG/VIAL (PROTONIX) IVP ONE (13:45)
[2020-05-19 16:04] LABS: INR 2.2 (0.80-1.20); PROTHROMBIN TIME 22.5 SECS (9.5-12.5)
[2020-05-19 16:15] VITALS: BP_SYST 162
[2020-05-19] MEDS: NACL 0.9% 1,000 ML IV SCH (17:55)
[2020-05-19 20:45] VITALS: BP_SYST 156
[2020-05-19] MEDS ORDERED: TPN PERIPHERAL IV SCH ×10 (21:00)
[2020-05-19] MEDS ORDERED: POTASSIUM ACETATE IV SCH ×10 (21:00)
[2020-05-19] MEDS ORDERED: SODIUM CHLORIDE IV SCH ×10 (21:00)
[2020-05-19] MEDS ORDERED: [UNRECOGNIZED DRUG - OTHER] IV SCH ×10 (21:00)
[2020-05-20] VITALS: BP_SYST 156
[2020-05-20 01:23] VITALS: BP_SYST 154
[2020-05-20] MEDS: HYDROmorphone 1 INJ. 1 MG/ML CARTRIDGE IVP PRN ×2 (03:35→08:00)
[2020-05-20] MEDS: KETOROLAC TROMETHAMINE 15 MG VIAL IVP SCH ×4 (05:54→23:00)
[2020-05-20 06:23] LABS: BASOPHILS % (AUTO) 0.3 % (0.0-2.0); EOSINOPHILS % (AUTO) 1.1 % (0.0-4.0); HEMOGLOBIN 11.5 g/dL (14.0-18.0); LYMPHOCYTES # (AUTO) 1.1 K/uL (1.0-5.5); LYMPHOCYTES % (AUTO) 27.1 % (20.5-51.5); MEAN CORPUSCULAR HEMOGLOBIN 28 pg (27-31); MEAN CORPUSCULAR HGB CONC 33 % (32-36); MEAN CORPUSCULAR VOLUME 86 fL (79.0-98.0); MONOCYTES # (AUTO) 0.6 K/uL (0.0-1.0); MONOCYTES % (AUTO) 14.4 % (1.7-9.3); NEUTROPHILS # (AUTO) 2.4 K/uL (1.8-7.7); NEUTROPHILS % (AUTO) 57.1 % (40.0-70.0); PLATELET COUNT (AUTO) 311 K/uL (130-430); RED BLOOD CELL COUNT(AUTO) 4.07 MIL/uL (4.2-6.2); RED CELL DISTRIBUTION WIDTH 14.6 % (9.0-15.0); WHITE BLOOD COUNT (AUTO) 4.2 K/uL (4.8-10.8)
[2020-05-20 06:34] LABS: CALCIUM 7.7 mg/dL (8.4-11.0); CREATININE 0.64 mg/dL (0.55-1.30); POTASSIUM 3.7 mmol/L (3.5-5.1)
[2020-05-20 07:57] VITALS: BP_SYST 154
[2020-05-20] MEDS: NICOTINE 14 MG/24 HR PATCH.TD24 TD SCH (08:01)
[2020-05-20] MEDS: PANTOPRAZOLE SODIUM 40 MG/VIAL (PROTONIX) IVP SCH (08:04)
[2020-05-20] MEDS: ENOXAPARIN SODIUM 30 MG/0.3 ML SYRINGE SUBCUT SCH (08:08)
[2020-05-20 12:16] VITALS: BP_SYST 150
[2020-05-20] MEDS: HYDROcodone/ACETAMIN 5-325 MG TAB (NORCO/ VICODIN) PO PRN ×2 (14:56→21:16)
[2020-05-20 16:18] VITALS: BP_SYST 144
[2020-05-20 20:00] VITALS: BP_SYST 168
[2020-05-20] MEDS ORDERED: POTASSIUM ACETATE IV SCH ×10 (21:00)
[2020-05-20] MEDS ORDERED: [UNRECOGNIZED DRUG - OTHER] IV SCH ×10 (21:00)
[2020-05-20] MEDS ORDERED: TPN PERIPHERAL IV SCH ×10 (21:00)
[2020-05-20] MEDS ORDERED: SODIUM CHLORIDE IV SCH ×10 (21:00)
[2020-05-21] VITALS: BP_SYST 159
[2020-05-21] MEDS: HYDROcodone/ACETAMIN 5-325 MG TAB (NORCO/ VICODIN) PO PRN (05:40)
[2020-05-21] MEDS: KETOROLAC TROMETHAMINE 15 MG VIAL IVP SCH ×2 (05:40→12:00)
[2020-05-21 06:30] LABS: BASOPHILS % (AUTO) 0.5 % (0.0-2.0); EOSINOPHILS % (AUTO) 0.7 % (0.0-4.0); HEMOGLOBIN 13.2 g/dL (14.0-18.0); LYMPHOCYTES # (AUTO) 1.4 K/uL (1.0-5.5); LYMPHOCYTES % (AUTO) 18.6 % (20.5-51.5); MEAN CORPUSCULAR HEMOGLOBIN 28 pg (27-31); MEAN CORPUSCULAR HGB CONC 33 % (32-36); MEAN CORPUSCULAR VOLUME 85 fL (79.0-98.0); MONOCYTES # (AUTO) 0.8 K/uL (0.0-1.0); MONOCYTES % (AUTO) 10.7 % (1.7-9.3); NEUTROPHILS # (AUTO) 5.1 K/uL (1.8-7.7); NEUTROPHILS % (AUTO) 69.5 % (40.0-70.0); PLATELET COUNT (AUTO) 318 K/uL (130-430); RED BLOOD CELL COUNT(AUTO) 4.68 MIL/uL (4.2-6.2); RED CELL DISTRIBUTION WIDTH 14.6 % (9.0-15.0); WHITE BLOOD COUNT (AUTO) 7.3 K/uL (4.8-10.8)
[2020-05-21 07:02] LABS: CREATININE 0.67 mg/dL (0.55-1.30); PHOSPHORUS 3.2 mg/dL (2.7-4.5); POTASSIUM 3.8 mmol/L (3.5-5.1)
[2020-05-21 08:00] VITALS: BP_SYST 122
[2020-05-21] MEDS: ENOXAPARIN SODIUM 30 MG/0.3 ML SYRINGE SUBCUT SCH (08:35)
[2020-05-21] MEDS: NICOTINE 14 MG/24 HR PATCH.TD24 TD SCH (08:36)
[2020-05-21] MEDS: PANTOPRAZOLE SODIUM 40 MG/VIAL (PROTONIX) IVP SCH (08:44)
[2020-05-21 09:22] LABS: PROTHROMBIN TIME 19.9 SECS (9.5-12.5)
[2020-05-21] MEDS: NACL 0.9% 1,000 ML IV SCH (11:56)
[2020-05-21 12:11] VITALS: BP_SYST 154
[2020-05-21] MEDS ORDERED: HYDR-3919 PO (15:41)
[2020-05-21 15:43] VITALS: BP_SYST 155
[2020-05-21] MEDS ORDERED: ASPI-1393 PO (17:23)
[2020-05-21] MEDS ORDERED: [UNRECOGNIZED DRUG - OTHER] IV SCH ×10 (21:00)
[2020-05-21] MEDS ORDERED: SODIUM CHLORIDE IV SCH ×10 (21:00)
[2020-05-21] MEDS ORDERED: POTASSIUM ACETATE IV SCH ×10 (21:00)
[2020-05-21] MEDS ORDERED: TPN PERIPHERAL IV SCH ×10 (21:00)
== END 2020-05-21 15:50 | disposition home or self-care (01) | DRG 227 ==
LOC: SED 06:28 → SMU 10:43
PROVIDERS: ADMIT Surgery; ATTEND Surgery
PROC: 0DN80ZZ Release Small Intestine, Open Approach (ICD-10-PCS; 2020-05-15)
PROC: 0WQF0ZZ Repair Abdominal Wall, Open Approach (ICD-10-PCS; principal; 2020-05-15 14:30)
DX: K42.9 Umbilical hernia without obstruction or gangrene (principal); E43 Unspecified severe protein-calorie malnutrition; K56.609 Unspecified intestinal obstruction, unspecified as to partial versus complete obstruction; G93.41 Metabolic encephalopathy; E87.6 Hypokalemia; E87.0 Hyperosmolality and hypernatremia; F17.200 Nicotine dependence, unspecified, uncomplicated; R73.9 Hyperglycemia, unspecified; Z20.822 Contact with and (suspected) exposure to COVID-19; Z90.49 Acquired absence of other specified parts of digestive tract
CPT/HCPCS: 36415; 71045; 74018; 74250-TC; 76376; 80048; 80053; 81000-TC; 82962; 83605; 83735-TC; 84100-TC; 84478-TC; 85025; 85610-TC; 85730-TC; 86886; 86900; 86901; 87040-TC; 87081; 94010; 96361; 96365; 96375; 97116-GP; C1751; C9113; J0330; J0610; J0690; J1100; J1170; J1650; J1815; J1885; J2250; J2270; J2405; J2543; J2704; J2710; J2765; J3010; J3475; J3480; J3490; J7030; J7040; J7042; J7050; J7120; J7131; Q9963; Q9967